=== PATIENT | female | born 1975 | race Caucasian/White ===

== ENCOUNTER 2019-05-23 20:38 | Emergency (ER) | payer SELFPAY ==
[~2019-05-23] VITALS: Ht 170.2 cm; Wt 75.8 kg
[2019-05-23 20:45] VITALS: BP 149/102
--- NOTE | 2019-05-23 21:49 | NUR ---
Patient/Caregiver given discharge instructions and they have confirmed that they understand the instructions. Patient ambulatory with steady gait.
== END 2019-05-23 21:51 | disposition home or self-care (01) ==
LOC: ED 21:45
DX: L24.5 Irritant contact dermatitis due to other chemical products (principal); L01.03 Bullous impetigo
CPT/HCPCS: 99283